=== PATIENT | female | born 1965 | race Caucasian/White ===

== ENCOUNTER 2020-11-02 19:44 | Inpatient (IN) | payer SELFPAY ==
[~2020-11-02] VITALS: Ht 162.6 cm; Wt 56.5 kg
[~2020-11-02 19:44] MED LIST: AMBIEN5 MG PO; LOPRESSOR25 MG PO; OMEPRAZOLE40 MG PO
[2020-11-02] MEDS ORDERED: ONDANSETRON HCL INJ 2MG/ML 2ML 2 MG/ML VIAL IV STA ×2 (20:37)
[2020-11-02] MEDS ORDERED: PANTOPRAZOLE 40 MG 10ML VIAL IV STA (20:37)
[2020-11-02] MEDS ORDERED: MULTIVITAMINS- 12 INJECTION 10 ML, FOLIC ACID MDV 5 MG, THIAMINE HCL INJ 100 MG in SODI... IV ONE (20:45)
[2020-11-02] MEDS ORDERED: SODIUM CHLORIDE 0.9% 1000ML 1,000 ML IV ONE (20:45)
[2020-11-02] MEDS ORDERED: THIAMINE HCL INJ 100 MG/ML 2ML VIAL ONE (20:49)
[2020-11-02] MEDS ORDERED: MULTIVITAMINS INJECTION ONE (20:50)
[2020-11-02] MEDS ORDERED: FOLIC ACID 5 MG/ML VIAL ONE (20:50)
[2020-11-02 21:08] LABS: BASOPHILS % 0.2 % (0.0-1.0); HEMOGLOBIN 12.9 g/dL (12.0-16.0); LYMPHOCYTES # (AUTO) 0.9 (1.0-3.2); LYMPHOCYTES % 6.8 % (18.0-39.1); MEAN CORPUSCULAR HEMOGLOBIN 31.9 pg (28-32); MEAN CORPUSCULAR HGB CONC 35.8 g/dL (31-35); MEAN CORPUSCULAR VOLUME 89.1 fL (81-99); MONOCYTES # (AUTO) 1.2 (0.2-0.8); MONOCYTES % 8.8 % (4.4-11.3); NEUTROPHILS % 83.5 % (38.7-80.0); PLATELET COUNT 215 x10e3/uL (140-360); RED BLOOD COUNT 4.04 x10e6/uL (3.6-5.1); RED CELL DISTRIBUTION WIDTH 15.1 % (11.7-14.4)
[2020-11-02 21:23] LABS: ALBUMIN 5.3 g/dL (3.5-5.0); ALBUMIN/GLOBULIN RATIO 1.2 (0.8-2.0); ANION GAP 30.6 mmol/L (8-16); CALCIUM 10.5 mg/dL (8.4-10.2); CREATININE, SERUM 1.96 mg/dL (0.57-1.11); POTASSIUM 3.6 mmol/L (3.5-5.1)
[2020-11-02 21:24] LABS: AMYLASE 103 U/L (25-125); LIPASE 93 U/L (8-78)
[2020-11-02 21:29] LABS: CREATINE KINASE MB 1.4 ng/mL (0-5.0)
[2020-11-02] MEDS ORDERED: CEFTRIAXONE SOD 1 GM/50 ML BAG IV ONE (22:15)
[2020-11-02] MEDS ORDERED: CEFTRIAXONE SOD 1 GM in SODIUM CHLORIDE 0.9% 50ML 50 ML IV ONE (22:30)
[2020-11-02 22:56] LABS: CLARITY,URINE CLOUDY (CLEAR); KETONES,URINE 2+ (NEGATIVE); LEUKOCYTE ESTERASE ,URINE NEGATIVE (NEGATIVE); NITRITE,URINE NEGATIVE (NEGATIVE); PROTEIN,URINE DIPSTICK 2+ (NEGATIVE)
[2020-11-02 22:57] LABS: AMPHETAMINES SCREEN,URINE NEGATIVE (NEGATIVE); BENZODIAZEPINES SCREEN,URINE POSITIVE (NEGATIVE); COLOR,URINE AMBER (YELLOW); PHENCYCLIDINE SCREEN,URINE NEGATIVE (NEGATIVE); URINE UROBILINOGEN 0.2 mg/dL (0.2 - 1)
[2020-11-02 23:07] LABS: BACTERIA,URINE MODERATE /HPF; EPITHELIAL CELLS,URINE MANY /LPF
[2020-11-02] MEDS ORDERED: CEFTRIAXONE SOD 1 GM/50 ML BAG IV SCH (23:30)
[2020-11-02] MEDS ORDERED: SODIUM CHLORIDE 0.9% 1000ML 1,000 ML IV SCH (23:30)
[2020-11-03] VITALS (26 sets, daily range): BP systolic 91–151; BP diastolic 67–101
[2020-11-03] MEDS: ONDANSETRON HCL INJ 2MG/ML 2ML 2 MG/ML VIAL IV PRN ×4 (00:28→23:50)
[2020-11-03 04:53] LABS: BASOPHILS % 0.3 % (0.0-1.0); HEMATOCRIT 27.6 % (34.2-44.1); HEMOGLOBIN 9.6 g/dL (12.0-16.0); LYMPHOCYTES # (AUTO) 0.8 (1.0-3.2); LYMPHOCYTES % 7.1 % (18.0-39.1); MEAN CORPUSCULAR HEMOGLOBIN 32.1 pg (28-32); MEAN CORPUSCULAR HGB CONC 34.8 g/dL (31-35); MEAN CORPUSCULAR VOLUME 92.3 fL (81-99); MONOCYTES # (AUTO) 1.5 (0.2-0.8); MONOCYTES % 12.3 % (4.4-11.3); NEUTROPHILS # (AUTO) 9.4 (2.1-6.9); NEUTROPHILS % 79.8 % (38.7-80.0); PLATELET COUNT 142 x10e3/uL (140-360); RED BLOOD COUNT 2.99 x10e6/uL (3.6-5.1); RED CELL DISTRIBUTION WIDTH 15.2 % (11.7-14.4)
[2020-11-03 05:12] LABS: ALBUMIN 3.6 g/dL (3.5-5.0); ALBUMIN/GLOBULIN RATIO 1.2 (0.8-2.0); ANION GAP 18.7 mmol/L (8-16); CALCIUM 7.5 mg/dL (8.4-10.2); CREATININE, SERUM 1.43 mg/dL (0.57-1.11)
[2020-11-03 05:55] LABS: POTASSIUM 2.7 mmol/L (3.5-5.1)
[2020-11-03] MEDS ORDERED: POTASSIUM CHLORIDE 20 MEQ TAB CR PO STA (06:18)
[2020-11-03] MEDS: POTASSIUM CHLORIDE 20 MEQ in SODIUM CHLORIDE 0.9% 1000ML 1,000 ML IV SCH ×2 (06:31→14:22)
[2020-11-03] MEDS ORDERED: KCL 20MEQ/.9 SOD CHL 1,000 ML IV ONE (06:50)
[2020-11-03 06:59] LABS: MAGNESIUM 1.2 MG/DL (1.3-2.1); PHOSPHORUS 1.6 MG/DL (2.3-4.7)
[2020-11-03 07:12] LABS: CREATINE KINASE MB 1.5 ng/mL (0-5.0)
[2020-11-03] MEDS ORDERED: PROMETHAZINE 12.5MG/ NACL 0.9% 12.5 MG/50 ML BAG IV PRN (08:45)
[2020-11-03] MEDS: LORAZEPAM INJ 2 MG/ML VIAL IV PRN ×3 (09:14→23:50)
[2020-11-03] MEDS ORDERED: MAGNESIUM SULFATE 2GM/50ML 50 ML IV ONE (09:30)
[2020-11-03] MEDS ORDERED: DONNATAL/LIDOCAINE/MAALOX 30 ML SUSP PO ONE (09:40)
[2020-11-03] MEDS: PANTOPRAZOLE 40 MG 10ML VIAL IV SCH (10:39)
[2020-11-03] MEDS: FAMOTIDINE 20 MG/2 ML VIAL IV SCH ×2 (10:39→17:16)
[2020-11-03] MEDS ORDERED: SODIUM PHOSPHATE 3 MMOL/ML INJ IV SCH (15:30)
[2020-11-03] MEDS ORDERED: CALCIUM CHLORIDE 13.6 MEQ in SODIUM CHLORIDE 0.9% 100 ML 100 ML IV ONE (16:00)
[2020-11-03] MEDS ORDERED: MAGNESIUM SULF 1GRAM/DEXTROSE 100 ML IV ONE (16:00)
[2020-11-03 17:04] LABS: CREATINE KINASE MB 1.3 ng/mL (0-5.0)
[2020-11-03] MEDS ORDERED: SODIUM PHOSPHATE 30 MMOL in SODIUM CHLORIDE 0.9% 250ML 250 ML IV ONE (17:30)
[2020-11-03] MEDS ORDERED: HYDRALAZINE HCL 20 MG/ML VIAL IV PRN (19:45)
[2020-11-03] MEDS ORDERED: TRAMADOL HCL 50 MG TAB PO PRN (19:45)
[2020-11-03] MEDS ORDERED: MELATONIN 5 MG TABLET PO PRN (19:45)
[2020-11-03] MEDS ORDERED: MORPHINE SULFATE INJ 2 MG/ML SYR IV PRN (19:45)
[2020-11-03] MEDS ORDERED: ACETAMINOPHEN 325 MG TAB PO PRN (19:45)
[2020-11-03] MEDS: CEFTRIAXONE SOD 1 GM in SODIUM CHLORIDE 0.9% 50ML 50 ML IV SCH (23:49)
[2020-11-03] MEDS ORDERED: CEFTRIAXONE SOD 1 GM VIAL ONE (23:50)
[2020-11-03] MEDS ORDERED: SODIUM CHLORIDE 0.9% 50ML 50 ML ONE (23:51)
[2020-11-04] VITALS (18 sets, daily range): BP systolic 104–141; BP diastolic 69–98
[2020-11-04] MEDS ORDERED: KCL 20MEQ/.9 SOD CHL 1,000 ML IV ONE (01:21)
[2020-11-04] MEDS: POTASSIUM CHLORIDE 20 MEQ in SODIUM CHLORIDE 0.9% 1000ML 1,000 ML IV SCH (01:26)
[2020-11-04 04:54] LABS: HEMATOCRIT 25.4 % (34.2-44.1); HEMOGLOBIN 8.5 g/dL (12.0-16.0); MEAN CORPUSCULAR HEMOGLOBIN 31.1 pg (28-32); MEAN CORPUSCULAR HGB CONC 33.5 g/dL (31-35); PLATELET COUNT 132 x10e3/uL (140-360); RED BLOOD COUNT 2.73 x10e6/uL (3.6-5.1); RED CELL DISTRIBUTION WIDTH 15.2 % (11.7-14.4)
[2020-11-04 04:55] LABS: BASOPHILS % 0.5 % (0.0-1.0); EOSINOPHILS # (AUTO) 0.1 (0.0-0.4); EOSINOPHILS % 0.8 % (0.0-6.0); LYMPHOCYTES # (AUTO) 1.1 (1.0-3.2); MONOCYTES # (AUTO) 0.9 (0.2-0.8); MONOCYTES % 14.5 % (4.4-11.3); NEUTROPHILS % 65.9 % (38.7-80.0)
[2020-11-04 05:16] LABS: ALANINE AMINOTRANSFERASE 19 IU/L (0-55); ALBUMIN 3.4 g/dL (3.5-5.0); ALBUMIN/GLOBULIN RATIO 1.3 (0.8-2.0); ALKALINE PHOSPHATASE 28 IU/L (40-150); ANION GAP 13.3 mmol/L (8-16); BLOOD UREA NITROGEN 20 mg/dL (7-26); BUN/CREATININE RATIO 22 (6-25); CALCIUM 7.8 mg/dL (8.4-10.2); CARBON DIOXIDE 25 mmol/L (22-29); CHLORIDE 100 mmol/L (98-107); CREATININE, SERUM 0.92 mg/dL (0.57-1.11); EST GLOMERULAR FILTRATION RATE > 60 ML/MIN (60-); GLUCOSE 100 mg/dL (74-118); MAGNESIUM 1.9 MG/DL (1.3-2.1); POTASSIUM 3.3 mmol/L (3.5-5.1); SODIUM 135 mmol/L (136-145)
[2020-11-04 05:30] LABS: CHOL/HDL RATIO 1.9 (3.0-3.6)
[2020-11-04] MEDS: PANTOPRAZOLE 40 MG 10ML VIAL IV SCH (08:42)
[2020-11-04] MEDS: THIAMINE HCL 100 MG TAB PO SCH (08:42)
[2020-11-04] MEDS: FOLIC ACID 1 MG TAB PO SCH (08:42)
[2020-11-04] MEDS: KCL 20MEQ/.9 SOD CHL 1,000 ML IV SCH ×2 (08:42→15:32)
[2020-11-04] MEDS: FAMOTIDINE 20 MG/2 ML VIAL IV SCH ×2 (08:42→16:24)
[2020-11-04] MEDS: LORAZEPAM INJ 2 MG/ML VIAL IV PRN ×2 (10:50→21:32)
[2020-11-04] MEDS ORDERED: POTASSIUM CHLORIDE 10MEQ EA PO ONE (16:15)
[2020-11-04] MEDS: METOCLOPRAMIDE HCL 10 MG/2ML VIAL IV SCH ×2 (17:02→23:03)
[2020-11-04] MEDS: ONDANSETRON HCL INJ 2MG/ML 2ML 2 MG/ML VIAL IV PRN (21:25)
[2020-11-04] MEDS: CEFTRIAXONE SOD 1 GM in SODIUM CHLORIDE 0.9% 50ML 50 ML IV SCH (23:03)
[2020-11-04] MEDS ORDERED: CEFTRIAXONE SOD 1 GM VIAL ONE (23:07)
[2020-11-04] MEDS ORDERED: SODIUM CHLORIDE 0.9% 50ML 50 ML ONE (23:07)
[2020-11-05] VITALS (9 sets, daily range): BP systolic 115–147; BP diastolic 74–101
[2020-11-05] MEDS: ONDANSETRON HCL INJ 2MG/ML 2ML 2 MG/ML VIAL IV PRN (03:15)
[2020-11-05] MEDS: LORAZEPAM INJ 2 MG/ML VIAL IV PRN (03:37)
[2020-11-05 04:50] LABS: BASOPHILS % 0.7 % (0.0-1.0); EOSINOPHILS # (AUTO) 0.1 (0.0-0.4); EOSINOPHILS % 1.3 % (0.0-6.0); HEMATOCRIT 25.8 % (34.2-44.1); HEMOGLOBIN 8.5 g/dL (12.0-16.0); LYMPHOCYTES # (AUTO) 1.2 (1.0-3.2); LYMPHOCYTES % 19.8 % (18.0-39.1); MEAN CORPUSCULAR HEMOGLOBIN 30.9 pg (28-32); MEAN CORPUSCULAR HGB CONC 32.9 g/dL (31-35); MEAN CORPUSCULAR VOLUME 93.8 fL (81-99); MONOCYTES # (AUTO) 1.2 (0.2-0.8); MONOCYTES % 19.8 % (4.4-11.3); NEUTROPHILS # (AUTO) 3.5 (2.1-6.9); NEUTROPHILS % 57.9 % (38.7-80.0); PLATELET COUNT 150 x10e3/uL (140-360); RED BLOOD COUNT 2.75 x10e6/uL (3.6-5.1); RED CELL DISTRIBUTION WIDTH 14.9 % (11.7-14.4)
[2020-11-05 05:13] LABS: ANION GAP 15.2 mmol/L (8-16); BLOOD UREA NITROGEN 12 mg/dL (7-26); BUN/CREATININE RATIO 13 (6-25); CALCIUM 8.2 mg/dL (8.4-10.2); CARBON DIOXIDE 25 mmol/L (22-29); CHLORIDE 99 mmol/L (98-107); CREATININE, SERUM 0.93 mg/dL (0.57-1.11); EST GLOMERULAR FILTRATION RATE > 60 ML/MIN (60-); GLUCOSE 104 mg/dL (74-118); POTASSIUM 3.2 mmol/L (3.5-5.1); SODIUM 136 mmol/L (136-145)
[2020-11-05] MEDS ORDERED: POTASSIUM CHLORIDE 20 MEQ TAB CR PO STA (05:30)
[2020-11-05] MEDS ORDERED: POTASSIUM CHLORIDE 20 MEQ TAB CR PO ONE (05:49)
[2020-11-05] MEDS ORDERED: KCL 20 MEQ PACKET/ ORAL SOLN ONE (05:54)
[2020-11-05] MEDS ORDERED: SODIUM CHLORIDE 0.9% 250ML 250 ML ONE (05:56)
[2020-11-05] MEDS: POTASSIUM CHLORIDE 20MEQ/100ML 100 ML IV SCH ×2 (06:13→08:00)
[2020-11-05] MEDS: METOCLOPRAMIDE HCL 10 MG/2ML VIAL IV SCH ×4 (06:13→23:55)
[2020-11-05] MEDS ORDERED: LORAZEPAM INJ 2 MG/ML VIAL IV PRN (07:45)
[2020-11-05] MEDS: THIAMINE HCL 100 MG TAB PO SCH (08:00)
[2020-11-05] MEDS: FOLIC ACID 1 MG TAB PO SCH (08:00)
[2020-11-05] MEDS: FAMOTIDINE 20 MG/2 ML VIAL IV SCH ×2 (08:27→16:56)
[2020-11-05] MEDS: PANTOPRAZOLE 40 MG 10ML VIAL IV SCH (08:27)
[2020-11-05] MEDS ORDERED: CHLORDIAZEPOXIDE HCL 10 MG CAP PO SCH (09:00)
[2020-11-05] MEDS ORDERED: PROPOFOL IV EMULSION 10 MG/ML 20 ML VIAL ONE (12:25)
[2020-11-05] MEDS ORDERED: MIDAZOLAM HCL 5 MG/ML VIAL ONE (13:02)
[2020-11-05] MEDS ORDERED: FENTANYL CITRATE/PF 100MCG/2 ML INJ ONE (13:02)
[2020-11-05] MEDS ORDERED: ZIPRASIDONE 20 MG VIAL IM PRN (17:00)
[2020-11-05] MEDS: CHLORDIAZEPOXIDE HCL 25 MG CAP PO PRN (17:07)
[2020-11-05] MEDS ORDERED: QUETIAPINE FUMARATE 25 MG TAB PO SCH (21:00)
[2020-11-05] MEDS ORDERED: CEFTRIAXONE SOD 1 GM VIAL ONE (23:24)
[2020-11-05] MEDS ORDERED: SODIUM CHLORIDE 0.9% 50ML 50 ML ONE (23:24)
[2020-11-05] MEDS: CEFTRIAXONE SOD 1 GM in SODIUM CHLORIDE 0.9% 50ML 50 ML IV SCH (23:55)
[2020-11-06] VITALS (10 sets, daily range): BP systolic 99–153; BP diastolic 75–101
[2020-11-06 05:28] LABS: BASOPHILS # (AUTO) 0.1 (0.0-0.1); EOSINOPHILS # (AUTO) 0.2 (0.0-0.4); EOSINOPHILS % 3.2 % (0.0-6.0); HEMATOCRIT 29.4 % (34.2-44.1); HEMOGLOBIN 9.6 g/dL (12.0-16.0); LYMPHOCYTES # (AUTO) 1.2 (1.0-3.2); MEAN CORPUSCULAR HEMOGLOBIN 32.1 pg (28-32); MEAN CORPUSCULAR HGB CONC 32.7 g/dL (31-35); MEAN CORPUSCULAR VOLUME 98.3 fL (81-99); MONOCYTES # (AUTO) 1.4 (0.2-0.8); MONOCYTES % 21.9 % (4.4-11.3); NEUTROPHILS # (AUTO) 3.4 (2.1-6.9); NEUTROPHILS % 54.4 % (38.7-80.0); PLATELET COUNT 191 x10e3/uL (140-360); RED BLOOD COUNT 2.99 x10e6/uL (3.6-5.1); RED CELL DISTRIBUTION WIDTH 15.1 % (11.7-14.4)
[2020-11-06] MEDS: CHLORDIAZEPOXIDE HCL 25 MG CAP PO PRN ×2 (05:33→08:30)
[2020-11-06] MEDS: METOCLOPRAMIDE HCL 10 MG/2ML VIAL IV SCH ×2 (05:33→12:06)
[2020-11-06 05:53] LABS: ANION GAP 16.7 mmol/L (8-16); CALCIUM 8.8 mg/dL (8.4-10.2); CREATININE, SERUM 1.01 mg/dL (0.57-1.11); POTASSIUM 3.7 mmol/L (3.5-5.1)
[2020-11-06] MEDS: THIAMINE HCL 100 MG TAB PO SCH (08:16)
[2020-11-06] MEDS: PANTOPRAZOLE 40 MG 10ML VIAL IV SCH (08:16)
[2020-11-06] MEDS: FAMOTIDINE 20 MG/2 ML VIAL IV SCH (08:16)
[2020-11-06] MEDS: FOLIC ACID 1 MG TAB PO SCH (08:16)
[2020-11-06] MEDS ORDERED: CHLORDIAZEPOXID25 MG PO (14:39)
[2020-11-06] MEDS ORDERED: PROTONIX20 MG PO (14:41)
== END 2020-11-06 15:15 | disposition home or self-care (01) | DRG 897 ==
LOC: ER 20:38 → ERHOLD 11-03 00:11 → ICU 11-03 00:45
PROVIDERS: ADMIT Internal Medicine; ATTEND Internal Medicine
PROC: 0DB78ZX Excision of Stomach, Pylorus, Via Natural or Artificial Opening Endoscopic, Diagnostic (ICD-10-PCS; 2020-11-05)
PROC: 0D748ZZ Dilation of Esophagogastric Junction, Via Natural or Artificial Opening Endoscopic (ICD-10-PCS; principal; 2020-11-05 13:00)
PROC: 0DB58ZX Excision of Esophagus, Via Natural or Artificial Opening Endoscopic, Diagnostic (ICD-10-PCS; 2020-11-05 13:00)
DX: F10.231 Alcohol dependence with withdrawal delirium (principal); N39.0 Urinary tract infection, site not specified; N17.9 Acute kidney failure, unspecified; K22.10 Ulcer of esophagus without bleeding; F17.210 Nicotine dependence, cigarettes, uncomplicated; Z88.5 Allergy status to narcotic agent; Y90.0 Blood alcohol level of less than 20 mg/100 ml; Z91.81 History of falling; F41.9 Anxiety disorder, unspecified; F32.9 Major depressive disorder, single episode, unspecified; E86.0 Dehydration; K21.9 Gastro-esophageal reflux disease without esophagitis; E87.6 Hypokalemia; E83.42 Hypomagnesemia; E83.52 Hypercalcemia; E80.6 Other disorders of bilirubin metabolism; D64.9 Anemia, unspecified; K29.70 Gastritis, unspecified, without bleeding; K44.9 Diaphragmatic hernia without obstruction or gangrene; K22.2 Esophageal obstruction
CPT/HCPCS: 36415; 43235; 43450; 70450; 71045; 74176; 76700; 80048; 80053; 80061; 80307; 80320; 81001; 82140; 82150; 82550; 82553; 83605; 83690; 83735; 84100; 84484; 85025; 87040; 87086; 87106; 87205; 88112; 88305; 88312; 93005; 99284; J0696; J2060; J2250; J2405; J2765; J3010; J3411; J3475; J3480; J7030; J7050; U0002

== ENCOUNTER 2021-12-11 14:25 | Inpatient (IN) | payer SELFPAY ==
[~2021-12-11] VITALS: Ht 152.4 cm; Wt 86.2 kg
[~2021-12-11 14:25] MED LIST changes: +CHLORDIAZEPOXID25 MG PO; +PROTONIX20 MG PO
[2021-12-11] MEDS ORDERED: SODIUM CHLORIDE 0.9% 1000ML 1,000 ML IV ONE (14:30)
[2021-12-11 14:52] LABS: BASOPHILS % 0.1 % (0.0-1.0); HEMATOCRIT 33.6 % (34.2-44.1); HEMOGLOBIN 11.3 g/dL (12.0-16.0); LYMPHOCYTES # (AUTO) 0.8 (1.0-3.2); LYMPHOCYTES % 6.1 % (18.0-39.1); MEAN CORPUSCULAR HEMOGLOBIN 24.5 pg (28-32); MEAN CORPUSCULAR HGB CONC 33.6 g/dL (31-35); MEAN CORPUSCULAR VOLUME 72.9 fL (81-99); MONOCYTES % 7.2 % (4.4-11.3); NEUTROPHILS # (AUTO) 11.4 (2.1-6.9); NEUTROPHILS % 86.1 % (38.7-80.0); PLATELET COUNT 100 x10e3/uL (140-360); RED BLOOD COUNT 4.61 x10e6/uL (3.6-5.1); RED CELL DISTRIBUTION WIDTH 24.7 % (11.7-14.4)
[2021-12-11] MEDS: Morphine 4mg Syringe 4 MG/ML INJ IV PRN ×2 (14:58→21:06)
[2021-12-11] MEDS: ONDANSETRON HCL INJ 2MG/ML 2ML 2 MG/ML VIAL IV PRN ×2 (14:59→21:06)
[2021-12-11 15:08] LABS: ALBUMIN 4.5 g/dL (3.5-5.0); ALBUMIN/GLOBULIN RATIO 0.8 (0.8-2.0); ANION GAP 23.2 mmol/L (8-16); CALCIUM 10.6 mg/dL (8.4-10.2); CREATININE, SERUM 1.74 mg/dL (0.57-1.11); POTASSIUM 4.2 mmol/L (3.5-5.1)
[2021-12-11 15:28] LABS: CLARITY,URINE HAZY (CLEAR); COLOR,URINE AMBER (YELLOW); KETONES,URINE TRACE (NEGATIVE); LEUKOCYTE ESTERASE ,URINE TRACE (NEGATIVE); NITRITE,URINE NEGATIVE (NEGATIVE); PROTEIN,URINE DIPSTICK 2+ (NEGATIVE)
[2021-12-11 15:29] LABS: URINE UROBILINOGEN 0.2 mg/dL (0.2 - 1)
[2021-12-11 15:36] LABS: BACTERIA,URINE MANY /HPF; EPITHELIAL CELLS,URINE MANY /LPF; WBC,URINE (MAN) 0-5 /HPF (0-5)
[2021-12-11] MEDS ORDERED: Morphine 4mg Syringe 4 MG/ML INJ IV PRN (16:45)
[2021-12-11] MEDS ORDERED: METOPROLOL TARTRATE INJ 1 MG/ML VIAL IV PRN (16:45)
[2021-12-11] MEDS ORDERED: ONDANSETRON HCL INJ 2MG/ML 2ML 2 MG/ML VIAL IV PRN (16:45)
[2021-12-11] MEDS ORDERED: ACETAMINOPHEN 325 MG TAB PO PRN (16:45)
[2021-12-11] MEDS: SODIUM CHLORIDE 0.9% 1000ML 1,000 ML IV SCH ×2 (18:55→21:06)
[2021-12-11 20:00] VITALS: BP 132/91
[2021-12-11 20:26] VITALS: BP 132/91
[2021-12-11 22:04] VITALS: BP 132/91
[2021-12-12] VITALS (8 sets, daily range): BP systolic 91–125; BP diastolic 49–81
[2021-12-12] MEDS: SODIUM CHLORIDE 0.9% 1000ML 1,000 ML IV SCH ×5 (00:56→17:28)
[2021-12-12 06:53] LABS: BASOPHILS % 0.1 % (0.0-1.0); EOSINOPHILS % 0.4 % (0.0-6.0); HEMATOCRIT 23.2 % (34.2-44.1); LYMPHOCYTES # (AUTO) 0.6 (1.0-3.2); LYMPHOCYTES % 7.6 % (18.0-39.1); MEAN CORPUSCULAR HEMOGLOBIN 24.6 pg (28-32); MEAN CORPUSCULAR HGB CONC 31.9 g/dL (31-35); MONOCYTES # (AUTO) 1.1 (0.2-0.8); MONOCYTES % 13.7 % (4.4-11.3); NEUTROPHILS % 77.9 % (38.7-80.0); RED BLOOD COUNT 3.01 x10e6/uL (3.6-5.1); RED CELL DISTRIBUTION WIDTH 25.1 % (11.7-14.4)
[2021-12-12 06:55] LABS: HEMOGLOBIN 7.4 g/dL (12.0-16.0); MEAN CORPUSCULAR VOLUME 77.1 fL (81-99); PLATELET COUNT 85 x10e3/uL (140-360)
[2021-12-12 07:06] LABS: ANION GAP 12.5 mmol/L (8-16); CALCIUM 7.1 mg/dL (8.4-10.2); CREATININE, SERUM 1.13 mg/dL (0.57-1.11)
[2021-12-12 07:11] LABS: POTASSIUM 2.5 mmol/L (3.5-5.1)
[2021-12-12] MEDS ORDERED: POTASSIUM CHLORIDE 20MEQ/100ML 100 ML IV ONE (08:30)
[2021-12-12] MEDS ORDERED: POTASSIUM CHLORIDE 20 MEQ TAB CR PO ONE (08:30)
[2021-12-12] MEDS: Morphine 4mg Syringe 4 MG/ML INJ IV PRN ×3 (09:10→20:59)
[2021-12-12] MEDS ORDERED: DIPHENHYDRAMINE HCL 25 MG CAP PO PRN (10:45)
[2021-12-12 15:13] LABS: BASOPHILS % 0.1 % (0.0-1.0); EOSINOPHILS % 0.6 % (0.0-6.0); LYMPHOCYTES # (AUTO) 0.7 (1.0-3.2); LYMPHOCYTES % 9.4 % (18.0-39.1); MEAN CORPUSCULAR HEMOGLOBIN 24.6 pg (28-32); MEAN CORPUSCULAR HGB CONC 31.7 g/dL (31-35); MEAN CORPUSCULAR VOLUME 77.8 fL (81-99); MONOCYTES # (AUTO) 1.1 (0.2-0.8); MONOCYTES % 16.2 % (4.4-11.3); NEUTROPHILS # (AUTO) 5.2 (2.1-6.9); NEUTROPHILS % 73.4 % (38.7-80.0); PLATELET COUNT 89 x10e3/uL (140-360); RED BLOOD COUNT 2.84 x10e6/uL (3.6-5.1); RED CELL DISTRIBUTION WIDTH 25.2 % (11.7-14.4)
[2021-12-12 15:16] LABS: HEMATOCRIT 22.1 % (34.2-44.1)
[2021-12-12 15:28] LABS: ANION GAP 12.2 mmol/L (8-16); CREATININE, SERUM 1.03 mg/dL (0.57-1.11); POTASSIUM 3.2 mmol/L (3.5-5.1)
[2021-12-12 15:32] LABS: CALCIUM 6.8 mg/dL (8.4-10.2)
[2021-12-12 17:03] LABS: FERRITIN 155.91 ng/mL (4.63-204.00)
[2021-12-12 20:41] LABS: HEMOGLOBIN 6.9 g/dL (12.0-16.0)
[2021-12-13] VITALS (9 sets, daily range): BP systolic 102–137; BP diastolic 67–87
[2021-12-13] MEDS: SODIUM CHLORIDE 0.9% 1000ML 1,000 ML IV SCH ×4 (01:00→13:00)
[2021-12-13] MEDS: Morphine 4mg Syringe 4 MG/ML INJ IV PRN ×3 (04:12→17:11)
[2021-12-13] MEDS: ONDANSETRON HCL INJ 2MG/ML 2ML 2 MG/ML VIAL IV PRN ×3 (04:14→17:11)
[2021-12-13] MEDS ORDERED: SODIUM FERRIC GLUCONATE COMPLX 125 MG in SODIUM CHLORIDE 0.9% 100 ML 100 ML IV SCH (11:00)
[2021-12-13 14:28] LABS: BASOPHILS % 0.4 % (0.0-1.0); EOSINOPHILS # (AUTO) 0.1 (0.0-0.4); EOSINOPHILS % 1.4 % (0.0-6.0); HEMATOCRIT 32.8 % (34.2-44.1); HEMOGLOBIN 10.8 g/dL (12.0-16.0); LYMPHOCYTES # (AUTO) 0.9 (1.0-3.2); LYMPHOCYTES % 11.8 % (18.0-39.1); MEAN CORPUSCULAR HEMOGLOBIN 26.2 pg (28-32); MEAN CORPUSCULAR HGB CONC 32.9 g/dL (31-35); MEAN CORPUSCULAR VOLUME 79.6 fL (81-99); MONOCYTES # (AUTO) 1.9 (0.2-0.8); MONOCYTES % 25.1 % (4.4-11.3); NEUTROPHILS # (AUTO) 4.6 (2.1-6.9); NEUTROPHILS % 60.6 % (38.7-80.0); PLATELET COUNT 123 x10e3/uL (140-360); RED BLOOD COUNT 4.12 x10e6/uL (3.6-5.1); RED CELL DISTRIBUTION WIDTH 22.7 % (11.7-14.4)
[2021-12-13 14:50] LABS: ANION GAP 16.5 mmol/L (8-16); CALCIUM 7.3 mg/dL (8.4-10.2); CREATININE, SERUM 0.89 mg/dL (0.57-1.11); POTASSIUM 3.5 mmol/L (3.5-5.1)
[2021-12-13] MEDS ORDERED: SENNOSIDES 8.6 MG TAB PO SCH (17:00)
[2021-12-13] MEDS ORDERED: SENOKOT8.6 MG PO (21:01)
[2021-12-13] MEDS ORDERED: FERROUS SULFAT325 M1 PO (21:01)
[2021-12-13] MEDS ORDERED: ONDANSETRON ODT4 MG PO (21:01)
[2021-12-13] MEDS ORDERED: CEPHALEXIN500 MG PO (21:01)
== END 2021-12-13 21:00 | disposition home or self-care (01) | DRG 439 ==
LOC: ER 14:32 → ERHOLD 16:34 → MED/SURG2 20:40
PROVIDERS: ADMIT Internal Medicine; ATTEND Internal Medicine
DX: K85.90 Acute pancreatitis without necrosis or infection, unspecified (principal); N17.9 Acute kidney failure, unspecified; N39.0 Urinary tract infection, site not specified; E87.1 Hypo-osmolality and hyponatremia; K80.20 Calculus of gallbladder without cholecystitis without obstruction; E86.0 Dehydration; K76.0 Fatty (change of) liver, not elsewhere classified; R29.6 Repeated falls; Z87.891 Personal history of nicotine dependence; F41.9 Anxiety disorder, unspecified; F32.A Depression, unspecified; D50.9 Iron deficiency anemia, unspecified; E83.51 Hypocalcemia; F10.21 Alcohol dependence, in remission
CPT/HCPCS: 36415; 74176; 80048; 80053; 80320; 81001; 82607; 82728; 83540; 83690; 83880; 84134; 84443; 84466; 84484; 85014; 85018; 85025; 86850; 86900; 86920; 93005; 94799; 99284; J2270; J2405; J2916; J3480; J7030; P9016; U0002